=== PATIENT | female | born 1975 | race Caucasian/White ===

== ENCOUNTER 2018-05-11 13:15 | Emergency (ER) | payer BC, OTHER ==
--- NOTE | 2018-05-11 13:24 | Emergency Department Record ---
History of Present Illness - General Stated Complaint: CHEST PAIN Time Seen by Provider: 05/11/18 13:18 Source: Patient Mode of Arrival: Ambulatory Limitations: No limitations - History of Present Illness Initial Comments: 43 yo female presents with shortness of breath since Tuesday night. She states since Tuesday evening she has developed pain with taking a deep breath or cough. She states she has had shortness of breath since then with activity as well. No significant cough but it does hurt to cough. No fevers. No known underlying heart disease. No history of DVT or PE. She reports she had exercise induced asthma as a child. No calf pain or leg swelling that she has noticed. She is a non smoker. If she breaths shallow there is no pain. She has taken Motrin with some improvement. The symptoms have been fairly constant since Tuesday. No early CAD or deaths in her family. He father in his late 50's due to multifactorial cause with smoking, alcohol, and not taking care of his underlying medical issues. PCP is in [place]. Complaint: Pain with inspiration, Shortness of breath -: Days(s) (4) Severity: Moderate Quality: Aching, Sharp Consistency: Intermittent Improves With: Rest Worsens With: Exertion, Inspiration Known History Of: Asthma, Other Context: Other Associated Symptoms: Chest pain - Related Data Home Medications Medication Instructions Recorded Confirmed Last Taken Aspirin [Aspir-Low] 81 mg PO DAILY 05/11/18 05/11/18 05/11/18 Cholecalciferol (Vitamin D3) 1 cap PO DAILY 05/11/18 05/11/18 05/11/18 [Vitamin D3] Ibuprofen 800 mg PO BID PRN 05/11/18 05/11/18 05/11/18 Metformin HCl 850 mg PO DAILY 05/11/18 05/11/18 05/11/18 Multivitamin [Multi-Vitamin Daily] 1 each PO DAILY 05/11/18 05/11/18 05/11/18 Ranitidine HCl [Zantac] 150 mg PO BID 05/11/18 05/11/18 05/11/18 Sennosides/Docusate Sodium [Senna 1 cap PO DAILY 05/11/18 05/11/18 05/11/18 Plus] Sertraline HCl [Zoloft] 150 mg PO DAILY 05/11/18 05/11/18 05/11/18 Allergies Allergy/AdvReac Type Severity Reaction Status Date / Time Penicillins Allergy HIVES Verified 05/11/18 14:15 sulfamethoxazole Allergy HIVES Verified 05/11/18 14:15 [From Bactrim] trimethoprim [From Bactrim] Allergy HIVES Verified 05/11/18 14:15 Review of Systems Constitutional: Denies: Chills, Fever, Malaise, Weakness Eyes: Denies: Eye discharge, Eye pain, Photophobia, Vision change ENT: Denies: Congestion, Ear pain, Epistaxis, Throat pain Respiratory: Reports: Dyspnea. Denies: Cough, Hemoptysis, Stridor, Wheezes Cardiovascular: Reports: As per HPI, Chest pain (with deep breathing), Orthopnea. Denies: Arrhythmia, Edema, Palpitations, Syncope Endocrine: Reports: Fatigue Gastrointestinal: Denies: Abdominal pain, Diarrhea, Nausea, Vomiting Genitourinary: Denies: Dysuria, Urgency Musculoskeletal: Denies: Arthralgia, Back pain, Joint swelling, Myalgia Skin: Denies: Bruising, Change in color, Rash Neurological: Denies: Confusion, Headache, Numbness, Vertigo, Weakness Psychiatric: Denies: Anxiety Hematological/Lymphatic: Denies: Blood Clots, Easy bleeding, Easy bruising, Swollen glands Physical Exam - General General Appearance: Alert, Oriented x3, Cooperative, No acute distress Limitations: No limitations - Head Head exam: Atraumatic, Normal inspection - Eye Eye exam: Normal appearance, PERRL. negative: Conjunctival injection, Scleral icterus - ENT ENT exam: Normal exam, Mucous membranes moist Ear exam: Normal external inspection Nasal Exam: Normal inspection Mouth exam: Normal external inspection Teeth exam: Normal inspection Throat exam: Normal inspection - Neck Neck exam: Normal inspection. negative: Lymphadenopathy - Respiratory Respiratory exam: Normal lung sounds bilaterally. negative: Accessory muscle use, Prolonged expiratory, Respiratory distress, Rhonchi, Stridor, Wheezes - Cardiovascular Cardiovascular Exam: Regular rate, Normal rhythm, Normal heart sounds Peripheral Pulses: 2+: Radial (R), Radial (L) - GI/Abdominal GI/Abdominal exam: Soft. negative: Tenderness - Rectal Rectal exam: Deferred - exam: Deferred - Extremities Extremities exam: Normal inspection. negative: Calf tenderness, Pedal edema, Tenderness - Back Back exam: Denies: CVA tenderness (R), CVA tenderness (L) - Neurological Neurological exam: Alert, Oriented X3 - Psychiatric Psychiatric exam: Normal affect, Normal mood. negative: Agitated, Anxious - Skin Skin exam: Dry, Intact, Normal color, Warm Course - Reevaluation(s) Reevaluation #1: EKG #1: 13:17 Rate: 107 Rhythm: Sinus Tachycardia Bronson: Normal Intervals: Normal ST segments: NS anterior flat T waves Prior: None 05/11/18 13:24 05/11/18 14:09 The CBC, CMP, Troponin and BNP are negative after 4 days of symptoms The HCG is negative D-Dimer is 0.45 05/11/18 14:32 The CXR was negative Given the symptoms CTA of the chest was ordered as well. 05/11/18 15:[address] of the chest was negative for acute process. No PE or other acute process in the chest. 05/11/18 15:51 The results were discussed with the patient. The pain only occurs with deep inspiration. If she breaths shallow and relaxed she does not have any pain. I will try Toradol and re-evaluate. 05/11/18 16:04 05/11/18 16:58 The preliminary ECHO was negative for effusion, wall motion abnormality, with a normal EF The pain is definitely improved with Toradol We did discuss outpatient follow up with cardiology to review the test at 8: 30am tomorrow Medical Decision Making - Lab Data Result diagrams: 05/11/18 13:35 05/11/18 13:35 Disposition Disposition: Discharge Clinical Impression: Chest pain Qualifiers: Chest pain type: unspecified Qualified Code(s): R07.9 - Chest pain, unspecified Disposition: Home, Self-Care Condition: (1) Good Instructions: Chest Pain (ED) Additional Instructions: Return immediately if worse, fever, short of breath Return at 8:30am to be seen in the [facility] with Dr Henriquez to review the tests performed. Take Motrin 600mg every 6 hours Off work today and tomorrow while under care Referrals: BLAIR HENRIQUEZ M.D. [MEDICAL DOCTOR] - [facility] [Provider Group] Time of Disposition: 17:01 Quality - Quality Measures Quality Measures: N/A - Blood Pressure Screening Does Patient Have Any of the Following: No Blood Pressure Classification: Pre-Hypertensive BP Reading Systolic Measurement: 132 Diastolic Measurement: 68 Screening for High Blood Pressure: < Pre-Hypertensive BP, F/U Documented > [ [id number]] Pre-Hypertensive Follow-up Interventions: Referral to alternative/primary care provider.
[2018-05-11 13:43] LABS: BASO % 0.9 % (0-6); EOS % 3.5 % (0-6); GRAN % 69.9 % (47-80); HEMATOCRIT 39.6 % (35.0-47.0); HEMOGLOBIN 12.9 gm/dl (11.6-16.0); LYMPH % 19.3 % (16-45); MEAN CELL VOLUME 90.6 fl (81-97); MEAN CORPUSCULAR HEMOGLOBIN 29.5 pg (27-33); MEAN CORPUSCULAR HGB CONC 32.6 g/dl (32-36); MEAN PLATELET VOLUME 8.1 fl (7.4-10.4); MONO % 6.4 % (0-9); PLATELET COUNT 312 K/uL (130-400); RED BLOOD COUNT 4.37 M/uL (3.80-5.40); WHITE BLOOD COUNT W/O DIFF 11.7 K/uL (4.2-12.2)
[2018-05-11 13:57] LABS: BLOOD UREA NITROGEN 14 mg/dL (6-20); CREATININE 0.4 mg/dL (0.5-0.9); EST GLOMERULAR FILTRATION RATE > 60 mL/min; TOTAL PROTEIN 7.6 g/dL (6.6-8.7)
[2018-05-11 13:59] LABS: GLUCOSE,RANDOM 145 mg/dL (74-109)
[2018-05-11 14:02] LABS: ALB/GLOB RATIO 1.3 (1.1-1.8); ALBUMIN 4.3 g/dL (4.0-5.0); ALKALINE PHOSPHATASE 72 U/L (45-87); ALT/SGPT 19 U/L (<33); AST/SGOT 19 U/L (10.0-35.0)
[2018-05-11 14:04] LABS: NTpro B-NATRIURETIC PEPTIDE 49.56 pg/mL (<125)
[2018-05-11] MEDS ORDERED: KETOROLAC 30 MG/ML VIAL IVP ONE (15:51)
--- NOTE | 2018-05-12 16:28 | Stress Test Report ---
STUDY: Treadmill stress test. DATE OF PROCEDURE: 05/12/2018. INTERPRETING PHYSICIAN: Florencio Henriquez M.D. PRIMARY CARE PHYSICIAN: Johanna Angel NP INDICATION: Chest pain. FINDINGS: Ms. Norman's resting vital signs show a blood pressure of 120/91 mmHg and a heart rate of 86 beats per minute. The patient's resting ECG shows sinus rhythm at 82 beats per minute with normal QRS axis and a IN interval of 148 milliseconds with a QRS duration of 86 milliseconds. No ischemic changes are seen. The patient was exercised on a motorized treadmill using standard Viktor protocol for a total of 6 minutes, achieving 7.3 METs of workload. The patient achieved a maximum heart rate of 167 beats per minute which is 93 percent of the maximum predicted heart rate for her age. The patient's maximum blood pressure was 228/86 mmHg. She did not have any abnormal symptoms during the stress test. The patient had occasional ventricular ectopics during the stress test. No other significant arrhythmia was seen. The patient did not have any abnormal ST or T-wave changes suggestive of ischemia. IMPRESSION: 1. Normal ECG response to exercise stress while achieving 7 METs of workload. 2. Hypertensive response to exercise stress with her blood pressure going up to 228/86 mmHg. JOB NUMBER: [id number] MTDD
--- NOTE | 2018-05-14 08:41 | RADIOLOGY REPORT ---
EXAM: CHEST 2 VIEWS HISTORY: CHEST PRESSURE. SHORTNESS OF BREATH. TECHNIQUE: PA and lateral upright views of the chest were obtained. COMPARISON: None. FINDINGS: The heart, mediastinum, and pulmonary vasculature are normal. The lungs are clear. There is no pneumothorax or effusion. The bones appear intact. IMPRESSION: NO ACUTE CHEST PATHOLOGY. JOB NUMBER: [id number] MTDD
--- NOTE | 2018-05-14 13:10 | CT ANGIOGRAM REPORT ---
EXAM: CT ANGIOGRAM CHEST CTA w contrast HISTORY: CHEST PAIN AND SHORTNESS OF BREATH. SYMPTOMS FOR THE PAST FOUR DAYS. TECHNIQUE: Standard CT angiography of the chest was performed with postprocessing following the bolus administration of 70 mL of Omnipaque-350. Additional coronal and sagittal maximum intensity projection reformatted images were performed on an independent workstation under concurrent supervision. COMPARISON: Chest x-ray from the same date. FINDINGS: The pulmonary arterial tree is normal. There is no pulmonary embolus. The heart is normal in size. There is no pericardial effusion. The aorta is normal in caliber and without dissection. There is no mediastinal or hilar lymphadenopathy. Moderate patchy areas of atelectasis are present dependently within the lower lungs bilaterally. There are no visible acute pulmonary infiltrates or effusions. There is no pneumothorax. There is diffuse hepatic steatosis and hepatomegaly. The patient is status post gastric sleeve procedure. The upper abdomen is otherwise unremarkable. IMPRESSION: 1. NO EVIDENCE FOR PULMONARY EMBOLUS OR OTHER ACUTE CARDIOPULMONARY PROCESS. 2. MODERATE DEPENDENT ATELECTASIS WITHIN THE LOWER LUNGS BILATERALLY. 3. HEPATOMEGALY AND STEATOSIS. 4. STATUS POST GASTRIC SLEEVE PROCEDURE. JOB NUMBER: [id number] [facility]
== END 2018-05-11 17:12 | disposition home or self-care (01) ==
LOC: ER 13:15
DX: R07.2 Precordial pain (principal); R06.02 Shortness of breath
CPT/HCPCS: 71046; 71275; 80053; 83880; 84484; 84703; 85025; 85379; 93005; 93010; 93306; 96374; 99284; J1885